=== PATIENT | male | born 1960 | race Caucasian/White ===

== ENCOUNTER 2018-04-12 12:40 | Outpatient (CLI) | payer OTHER ==
--- NOTE | 2018-04-12 13:26 | RAD ---
CHEST PA AND LATERAL: HISTORY: A 57-year-old male with a history of dyspnea. COMPARISON: 12/04/2008 FINDINGS: Heart size is within normal limits. Lungs are clear. No pneumonia, edema, pleural effusion, or othe r acute process. IMPRESSION: No acute intrathoracic disease. Stable from prior study. POS: [facility]
== END 2018-04-12 12:41 | disposition home or self-care (01) ==
LOC: RAD 12:40
PROVIDERS: ATTEND Internal Medicine
DX: R06.00 Dyspnea, unspecified (principal)
CPT/HCPCS: 71046

== ENCOUNTER 2018-05-24 10:45 | Outpatient (CLI) | payer OTHER ==
--- NOTE | 2018-05-24 14:02 | MRI ---
LEFT SHOULDER MRI WITHOUT IV CONTRAST: HISTORY: A 57-year-old male with a history of left shoulder pain, laterally, with biceps tendinitis, left. TECHNIQUE: Multiplanar, multisequence MR examination of the left shoulder is performed. FINDINGS: AC joint arthrosis changes are noted. There is a small amount of fluid within the subacromial bursa. Tendinopathy changes are noted of the supraspinatus tendon, but no evidence for a complete full-thi ckness or retracted tear. The infraspinatus tendon and teres minor tendons are unremarkable. The bi ceps tendon appears unremarkable. No evidence of associated tear. The subscapularis tendon is intac t. The visualized labrum is unremarkable. There is some minimal motion artifact on several sequence s, lowering the sensitivity of this study. No acute osteochondral defect. Rotator cuff muscles are within normal limits in size and signal. IMPRESSION: 1. Acromioclavicular joint arthrosis changes. 2. Supraspinatus tendinopathy. 3. No evidence for other significant acute internal derangement. POS: [facility]
== END 2018-05-24 10:46 | disposition home or self-care (01) ==
LOC: TBSIIMAG 10:45
PROVIDERS: ATTEND Family Medicine
DX: M75.22 Bicipital tendinitis, left shoulder (principal); M19.012 Primary osteoarthritis, left shoulder; M75.82 Other shoulder lesions, left shoulder

== ENCOUNTER 2020-10-19 08:40 | Inpatient (IN) | payer MEDICARE, MEDICAID ==
[2020-10-19] MEDS ORDERED: Lidocaine 1% PF 5 ML VIAL ONE (09:24)
[2020-10-19] MEDS ORDERED: Dexamethasone 20 MG/5 ML VIAL ONE (09:24)
[2020-10-19] MEDS ORDERED: Ondansetron PF 4 MG/2 ML Vial ONE (09:24)
[2020-10-19] MEDS ORDERED: PROPOFOL 200 MG/20 ML VIAL ONE (09:24)
[2020-10-19] MEDS ORDERED: Glycopyrrolate 0.2 MG/ML 5 ML SYRINGE ONE (09:24)
[2020-10-19] MEDS ORDERED: Rocuronium Bromide 10 MG/ML (10ML VIAL) ONE (09:24)
[2020-10-19] MEDS ORDERED: PHENYLEPHRINE-NS 100 MCG/ML 10 ML SYRINGE ONE (09:24)
[2020-10-19] MEDS ORDERED: Iothalamate Meglumine 60% 50 ML VIAL FS ONE (10:00)
[2020-10-19] MEDS ORDERED: Indomethacin 50 MG SUPP ONE (10:00)
[2020-10-19] MEDS ORDERED: Fentanyl 100 MCG/2 ML VIAL ONE (10:05)
[2020-10-19] MEDS ORDERED: Piperacillin/Tazobactam 3.375 GM VIAL ONE ×2 (10:37→18:09)
[2020-10-19] MEDS ORDERED: Sodium Chloride 0.9% 100 ML ONE (10:38)
--- NOTE | 2020-10-19 12:12 | OP ---
DATE OF PROCEDURE: 10/19/2020 PROCEDURE PERFORMED: Endoscopic retrograde cholangiopancreatography with sphincterotomy and balloon stone extraction. PREOPERATIVE DIAGNOSES: Choledocholithiasis and cholangitis. DESCRIPTION OF PROCEDURE: Informed consent was obtained from the patient. He was sedated with general anesthesia and placed in the prone position. The duodenoscope was advanced easily to the second portion of the duodenum. The ampulla was identified and appeared unremarkable. The common bile duct was selectively cannulated easily on 1st attempt. Cholangiogram showed a 14 mm common bile duct with multiple filling defects up to 1.1 cm. The intrahepatic ducts were normal. A complete sphincterotomy was performed. There was pus and multiple yellow pigment stones (around 6) extracted from the duct with a 15 mm balloon. The 15 mm balloon passes through the sphincterotomy without significant resistance. The fluid was suctioned from the stomach and procedure was completed. IMPRESSION: 1. Cholangiogram shows a 14 mm common bile duct with multiple filling defects up to 1.1 cm. 2. Complete sphincterotomy performed. 3. Pus and multiple yellow pigment stones extracted from the bile duct consistent with ascending cholangitis. 4. Occlusion cholangiogram was clear. RECOMMENDATIONS: 1. General Surgery consult for lap cholecystectomy. 2. Continue Zosyn for now. Job ID: [id number] [facility]
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
[2020-10-19 13:11] VITALS: BMI 28.4
--- NOTE | 2020-10-19 13:32 | RAD ---
ERCP: DATE: 10/19/2020 Nine fluoroscopic images are presented from OR during ERCP procedure. INDICATION: Intraoperative imaging during ERCP procedure. FINDINGS/IMPRESSION: These images show opacification of the common duct. There are numerous filling defects seen within th e common duct on the initial images. Final image shows no significant filling defect apparent. POS: [facility]
[2020-10-19] MEDS ORDERED: Ondansetron PF 4 MG/2 ML Vial IVP PRN (14:15)
--- NOTE | 2020-10-19 14:22 | PDOC.FPRHP ---
- History of Present Illness Chief Complaint: Abdominal pain History of Present Illness: Patient is a 59 year old male with a history of HTN, COPD, and GERD who presented to the [place] ED with complains of diffuse abdominal pain, lower back pain and severe nausea since yesterday am. Patient reports symptoms were sudden onset. Pain rated max 10/10, not worsened with movement or food, without radiation. No hx of similar pain in the past. Initially thought pain was due to chronic low back pain. Took BC powder and muscle relaxant without relief. Reports chronic frontal headache but denies fever, chills, chest pain, SOB, vomiting, and diarrhea. States pain resolved after receiving fentanyl 50mcg x 2 in the ED. ED Course: In the ED, patient was tachycardic. Afebrile. Received fentanyl 50mcg x 2, Zofran and 2L IV fluids. Abdominal US showed cholelithiasis and sludge with dilated CBD at 1.4cm. Started on zosyn IV. Dr. Gallardo, GI was consulted and recommended transfer to [facility] for ERCP. - Allergies/Adverse Reactions Allergies Allergy/AdvReac Type Severity Reaction Status Date / Time codeine Allergy Hives Verified 10/19/20 13:04 - Home Medications Medication Instructions Recorded Confirmed Type Acetaminophen [Tylenol Regular 650 mg PO Q4H PRN tab 10/19/20 Rx Strength] Budesonide [Pulmicort Neb Solution] 0.5 mg NEB BID-RT ampule 10/19/20 Rx Guaifenesin DM 100-10 [Robitussin 15 ml PO Q4H PRN ml 10/19/20 Rx DM] Ipratropium/Albuterol Sulfate 3 ml NEB Q4H PRN neb 10/19/20 Rx [DuoNeb] Ketorolac Tromethamine [Toradol] 15 mg IVP Q6H PRN vial 10/19/20 Rx Morphine 4 mg SLOW IVP Q4H PRN vial 10/19/20 Rx Nicotine [Nicoderm CQ] 21 mg TD 0800 patch 10/19/20 Rx Ondansetron HCl/PF [Zofran] 4 mg IVP Q6H PRN vial 10/19/20 Rx Piperacillin/Tazobactam [Zosyn] 3.375 gm IVPB Q8H vial 10/19/20 Rx Sodium Chloride 0.9% [Normal 100 ml IVPB INF bag 10/19/20 Rx Saline 0.9%] - History PMHx: HTN, COPD, GERD, Anxiety, Depression, chronic back pain, OA, tobacco use, nephrolithiasis PSHx: Back surgery FHx: Noncontributory Social: Smokes 1ppd. Denies ETOH use. + marijuana use. - Review of Systems General: denies: fever/chills, weight/appetite/sleep changes Eyes: denies: eye pain, vision changes ENT: denies: nasal congestion, rhinorrhea Respiratory: denies: cough, shortness of breath Cardiovascular: denies: chest pain, palpitation, edema Gastrointestinal: reports: nausea (now resolved), abdominal pain (now resolved). denies: vomiting, diarrhea, constipation Genitourinary: denies: dysuria, polyuria Skin: denies: rashes, jaundice Musculoskeletal: denies: pain, tenderness Neurological: denies: syncope, weakness Psychological: denies: anxiety, depression - Vital signs BP: [115/76] HR: [66] RR: [20] Tmax: [96.8F] Pox: [93]% on [RA] Wt: [108.8kg] - Physical Exam Constitutional: NAD, awake, alert and oriented HEENT: normocephalic and atraumatic, MMM -HEENT: Scleral icterus Neck: FROM, trachea midline Chest: no-tender to palpation Heart: RRR, normal S1/S2, pulses present Lungs: CTAB, no respiratory distress, good air movement Abdomen: soft, non-tender, bowel sounds present, no masses/distention Musculoskeletal: ROM grossly normal Neurological: no focal deficit -Skin: Jaundice present Heme/Lymphatic: no unusual bruising or bleeding Psychiatric: normal mood and affect FMR H&P: A/P - Plan Choledocholithiasis Cholelithiasis Ascending cholangitis WBC 12.3->14.6. Bili 2.7->3.6. AST 422->268. ALT 454->391. UA, trop, hep panel, COVID neg. CT Chest/Abdomen and Abdominal US: cholelithiasis. CBD 1.4 cm. -Patient evaluated by Dr. Gallardo, GI, at ED -ERCP completed on 10/19 and showed choledocholithiasis, ascending cholangitis -Dr. Osborne, gen surg, consulted. Plan for lap marcy in am -Continue Zosyn -Continue LR at 125 -Tylenol PRN for pain Migraine -Reports taking sumatriptan PRN, dose unknown HTN -Not on medication at home -Monitor BP COPD -Not on medication at home Tobacco use -Nicotine patch -Counselled on smoking cessation Marijuana use -UDS + TCH -Counselled on cessation Nephrolithiasis GERD Anxiety Depression Chronic back pain Osteoarthritis -Aware Code: FULL DVT PPx: SCDs Dispo: admit to medicine inpatient, undergo lap marcy in am FMR H&P: Upper Level - Plan Date/Time: 10/19/20 1422 I, Leslie Garner, PGY2, have evaluated this patient and agree with findings/plan as outlined by email marketing intern resident. Pertinent changes/additions are listed here. 59 yo M w/ PMHx of COPD, arthritis, and back pain presented to -ED due to diffuse abdominal pain which would not resolve. He gives minimal responses to questions but says he has had abdominal pain for about a month with acute worsening today. Pain radiates to his back. He thought it was his usual back pain and took muscle relaxers but this did not work. He was accepted as a transfer to our facility for ERCP after ultrasound was suspicious for choledocholithiasis. ERCP was performed by Dr. Gallardo of GI. He performed sphincterotomy, removed stones, and extracted pus from dilated common bile duct. Diagnoses at the time of the operation are ascending cholangitis and choledocholithiasis. Dr. Gallardo has consulted gen surg for lap marcy tomorrow. Patient is aware of this. On my visit with the patient, he was feeling nauseous after trying some broth on his clear liquid diet. VSS No acute distress, scleral icterus bilaterally, mucous membranes moist without jaundice color, lungs CTAB, heart RRR/no murmurs. No edema in his extremities. Mildly tender in abdomen on RUQ. A/P: Ascending cholangitis: continue zosyn, this coverage should be adequate. Gen surg to remove gallbladder tomorrow. NPO at midnight. Zofran for nausea Choledocholithiasis: trend LFTs, GI consulted, stones removed by Dr. Gallardo. Hypomagnesemia: 1.5 at outside hospital, recheck in AM Chronic conditions: Migraines: treat w/ medications, if has a home med, he may take it OA: tylenol prn Tobacco use: encourage cessation THC use: on UDS at [facility], encourage cessation Code: FULL VTE ppx: SCDs Fluids: NS at 125 mL/hr Dispo: inpatient, medical. PCP: Nuria Blandonum - Attending - Attending Attestation Date/Time: 10/19/201948 I personally evaluated the patient and discussed the management with Dr. Lopez/Pascual. H&P repeated by me. I agree with the History, Examination, Assessment and Plan documented above with any addition or exceptions noted below. Ascending cholangitis- s/p ERCP with spincterotomy and stone/pus extraction- on Zosyn. gen surg consult for possible lap marcy Migraine zaragoza- try sumitriptan and if no improvement consider reglan and headache protocol HTN- monitor
[2020-10-19] MEDS ORDERED: Ondansetron ODT 4 MG TAB PO PRN (14:25)
[2020-10-19] MEDS: Nicotine 14 MG PATCH TD SCH (15:22)
[2020-10-19] MEDS ORDERED: SUMAtriptan Succinate 25 MG TAB PO SCH (16:00)
[2020-10-19] MEDS ORDERED: cefOXitin Sodium/Dextrose,Iso 2 GM in Premix Bag 1 BAG IVPB SCH (16:30)
[2020-10-19] MEDS: Lactated Ringer's 1,000 ML IV SCH ×2 (16:34→20:49)
[2020-10-19] MEDS: Acetaminophen 325 MG TAB PO PRN ×2 (18:12→23:52)
[2020-10-19] MEDS: Piperacillin/Tazobactam 3.375 GM in Sodium Chloride 0.9% 100 ML IVPB SCH ×2 (18:12→23:56)
[2020-10-19] MEDS ORDERED: SUMAtriptan Succinate 50 MG TAB PO SCH (18:30)
--- NOTE | 2020-10-19 20:24 | CON ---
DATE OF CONSULTATION: 10/19/2020 CHIEF COMPLAINT: Choledocholithiasis. HISTORY OF PRESENT ILLNESS: The patient is a 59-year-old male, who came in with severe right upper quadrant pain and hyperbilirubinemia. He had enlarged common duct. He underwent ERCP and stone extraction today. I was asked to see him for laparoscopic cholecystectomy. PAST MEDICAL HISTORY: Significant for; 1. COPD. 2. Asthma. PAST SURGICAL HISTORY: 1. He has had arm surgery. 2. He has had cystoscopies. ALLERGIES: HE HAS AN ALLERGY TO CODEINE. MEDICATIONS: 1. Sumatriptan. 2. ProAir. SOCIAL HISTORY: Smokes a pack a day. No alcohol. PHYSICAL EXAMINATION: VITAL SIGNS: Temperature 96.8, pulse 66, blood pressure 115/76. GENERAL: Well-developed, well-nourished male, in no apparent distress. HEENT: Unremarkable. He does have jaundice. LUNGS: Clear. HEART: Regular rate and rhythm. ABDOMEN: Soft. Mild tenderness in right upper quadrant. EXTREMITIES: Unremarkable. LABORATORY DATA: His white blood cell count 14.6, H and H of 14 and 41, platelet count 155. His electrolytes show a bilirubin of 3.6, AST is 268, ALT is 391. ASSESSMENT: Choledocholithiasis. PLAN: Laparoscopic cholecystectomy. CONSENT: I have discussed planned procedure as well as risk of bleeding, infection, injury to bile duct, injury to bowel, need to open. He understands and gives informed consent. Job ID: [id number]
[2020-10-20] MEDS ORDERED: SUMAtriptan Succinate 50 MG TAB PO SCH (00:30)
[2020-10-20] MEDS: Piperacillin/Tazobactam 3.375 GM in Sodium Chloride 0.9% 100 ML IVPB SCH ×3 (05:01→17:27)
[2020-10-20] MEDS: Lactated Ringer's 1,000 ML IV SCH ×3 (05:02→20:52)
[2020-10-20 05:31] LABS: #Monocytes 0.6 thou/uL (0.11-0.59); #Neutrophils 7.8 thou/uL (1.40-6.50); %Basophils 0.3 % (0.0-1.0); %Eosinophils 0.4 % (0.0-10.0); %Lymphocytes 10.7 % (21.0-51.0); %Monocytes 6.3 % (0.0-10.0); %Neutrophils 82.4 % (42.0-75.0); Hemoglobin 13.6 g/dL (14.0-18.0); Mean Corpuscular HGB CONC 33.4 g/dL (32.0-36.0); Mean Corpuscular Hemoglobin 31.5 pg (27.0-31.0); Mean Corpuscular Volume 94.5 fL (78.0-98.0); Mean Platelet Volume 8.7 fL (7.4-10.4); Platelet Count 136 thou/uL (130-400); RBC Distribution Width 12.1 % (11.5-14.5); Red Blood Cell (RBC) Count 4.32 mill/uL (4.70-6.10); White Blood Cell (WBC) Count 9.5 thou/uL (4.8-10.8)
[2020-10-20 05:53] LABS: ALT (SGPT) 252 U/L (8-55); AST (SGOT) 112 U/L (5-34); Albumin 3.4 g/dL (3.5-5.0); Alkaline Phosphatase 65 U/L (40-110); Anion Gap 12 mmol/L (10-20); BUN (Urea Nitrogen) 11 mg/dL (8.4-25.7); Calc. Creatinine Clearance 115 mL/min (70-130); Calcium 8.6 mg/dL (7.8-10.44); Carbon Dioxide 23 mmol/L (22-29); Cardiac Risk 3.3 (Less than 4.5); Chloride 107 mmol/L (98-107); Cholesterol 120 mg/dl (< 200 Desired); Globulin 2.5 g/dL (2.4-3.5); Glucose 102 mg/dL (70-105); HDL Cholesterol 36 mg/dL (>60 Neg Risk); LDL Cholesterol, Calculated 70 mg/dL; Magnesium 1.9 mg/dL (1.6-2.6); Potassium 4.2 mmol/L (3.5-5.1); Protein, Total 5.9 g/dL (6.0-8.3); Sodium 138 mmol/L (136-145); Triglycerides 68 mg/dL (Less than 150)
--- NOTE | 2020-10-20 07:05 | PDOC.FM ---
- Subjective Subjective: Patient is resting comfortably in bed. Reports that he has no abdominal pain, denies N/V. Patient denies chest pain, shortness of breath. - Objective MAR Reviewed: Yes Vital Signs & Weight: Vital Signs (12 hours) Temp Pulse Resp BP Pulse Ox 10/20/20 03:50 98.4 F 83 14 120/83 94 L 10/20/20 00:15 98.3 F 70 14 124/83 95 10/19/20 20:50 96 10/19/20 20:40 97.4 F L 83 16 118/77 96 Weight Weight 108.862 kg I&O: 10/19/20 10/20/20 10/21/20 06:59 06:59 06:59 Intake Total 1950 Output Total 1850 Balance 100 Result Diagrams: 10/20/20 05:05 10/20/20 05:05 Phys Exam - Physical Examination Constitutional: NAD HEENT: PERRLA, moist MMs Respiratory: no wheezing, clear to auscultation bilateral Cardiovascular: RRR, no significant murmur Gastrointestinal: soft, positive bowel sounds mild TTP RUQ Musculoskeletal: no edema Neurological: non-focal, moves all 4 limbs Psychiatric: normal affect, A&O x 3 Dx/Plan - Plan Plan: Choledocholithiasis, Ascending cholangitis WBC 12.3->9.5. Bili 2.7->2. AST/ALT 422/454->112/252, UA, trop, hep panel, COVID neg. CT Chest/Abdomen and Abdominal US: cholelithiasis. CBD 1.4 cm. -Patient evaluated by Dr. Gallardo, GI, at ED -ERCP completed on 10/19 and showed choledocholithiasis, ascending cholangitis, removed pus & stones -Dr. Osborne, gen surg, consulted. Plan for lap marcy this morning -Continue Zosyn -Continue LR at 125 -Tylenol PRN for pain Migraine -Reports taking sumatriptan PRN, dose unknown HTN -Not on medication at home -Monitor BP COPD -Not on medication at home Tobacco use -Nicotine patch -Counselled on smoking cessation Marijuana use -UDS + TCH -Counselled on cessation Hx Nephrolithiasis - aware GERD - on pantoprazole Anxiety /Depression - aware, no home meds Chronic back pain Osteoarthritis -Aware Code: FULL DVT PPx: SCDs Dispo: plan for lap marcy this morning Addendum - Attending - Attending Attestation Date/Time: 10/20/20 5075 I personally evaluated the patient and discussed the management with Dr. Paul. I agree with the History, Examination, Assessment and Plan documented above with any addition or exceptions noted below. Here for choledocholithiasis and suspected ascending cholangitis s/p ERCP. Doing well. Going for lap marcy today with general surgery.
[2020-10-20] MEDS ORDERED: Bupivacaine 0.25% HCL 30 ML VIAL ONE (08:54)
[2020-10-20] MEDS ORDERED: Lidocaine 1% w/Epinephrine 1:100K 20 ML VIAL ONE (08:54)
[2020-10-20] MEDS ORDERED: FLU VACC QS2020-21(6MOS UP)/PF 60 MCG/0.5 ML SYRINGE IM ONE (09:00)
[2020-10-20] MEDS ORDERED: Midazolam HCl 2 mg/2 ml Vial ONE (09:03)
[2020-10-20] MEDS ORDERED: Fentanyl 100 MCG/2 ML VIAL ONE ×2 (09:03→09:58)
[2020-10-20] MEDS ORDERED: cefOXitin Sodium/Dextrose 2 GM/50 ML BAG ONE (09:13)
[2020-10-20] MEDS ORDERED: Promethazine HCl 25 MG/ML VIAL IM PRN ×2 (09:21→10:27)
[2020-10-20] MEDS ORDERED: HYDROmorphone 2 MG/ML VIAL SLOW IVP PRN (09:21)
[2020-10-20] MEDS ORDERED: Ondansetron HCl/PF 4 MG/2 ML Vial IVP PRN (09:21)
[2020-10-20] MEDS ORDERED: Promethazine HCl 25 MG/ML VIAL SLOW IVP PRN (09:21)
[2020-10-20] MEDS ORDERED: Ketorolac Tromethamine 30 MG/ML VIAL IVP PRN (09:21)
[2020-10-20] MEDS ORDERED: Dextrose 50% Abboject 50 ML SYRINGE SLOW IVP PRN (10:27)
[2020-10-20] MEDS ORDERED: HYDROcodone/Acetaminophen 10/325 mg Tablet PO PRN (10:27)
[2020-10-20] MEDS ORDERED: Dextrose 5% in Water 1,000 ML IV PRN (10:27)
[2020-10-20] MEDS ORDERED: Mag-Al 1200 mg/1200 mg/30 ML UDCUP PO PRN (10:27)
[2020-10-20] MEDS ORDERED: Morphine 4 MG/ML VIAL SLOW IVP PRN (10:27)
[2020-10-20] MEDS ORDERED: Calcium Carbonate 500 MG ChewTAB PO PRN (10:27)
[2020-10-20] MEDS ORDERED: hydrALAZINE 20 MG/ML VIAL SLOW IVP PRN (10:27)
[2020-10-20] MEDS ORDERED: Ondansetron PF 4 MG/2 ML Vial IVP PRN (10:27)
[2020-10-20] MEDS ORDERED: Morphine 2 MG/ML VIAL SLOW IVP PRN (10:27)
[2020-10-20] MEDS ORDERED: PHENYLEPHRINE-NS 100 MCG/ML 10 ML SYRINGE ONE (10:46)
[2020-10-20] MEDS ORDERED: Dexamethasone 20 MG/5 ML VIAL ONE (10:46)
[2020-10-20] MEDS ORDERED: Ketorolac Tromethamine 30 MG/ML VIAL ONE (10:46)
[2020-10-20] MEDS ORDERED: Lidocaine 1% PF 5 ML VIAL ONE (10:46)
[2020-10-20] MEDS ORDERED: Rocuronium Bromide 10 MG/ML (10ML VIAL) ONE (10:46)
[2020-10-20] MEDS ORDERED: Glycopyrrolate 0.2 MG/ML 5 ML SYRINGE ONE (10:46)
[2020-10-20] MEDS ORDERED: Ondansetron PF 4 MG/2 ML Vial ONE (10:46)
[2020-10-20] MEDS ORDERED: PROPOFOL 200 MG/20 ML VIAL ONE (10:46)
[2020-10-20] MEDS ORDERED: HYDROcodone/Acetaminophen 5/325 mg Tablet ONE (11:22)
[2020-10-20] MEDS: Ketorolac Tromethamine 30 MG/ML VIAL IVP SCH ×2 (12:08→17:28)
--- NOTE | 2020-10-20 12:10 | OP ---
DATE OF PROCEDURE: 10/20/2020 PREOPERATIVE DIAGNOSIS: Acute cholecystitis. PROCEDURE PERFORMED: Laparoscopic cholecystectomy. INDICATIONS: This is a 59-year-old male, who was admitted through the emergency room with cholangitis, underwent ERCP yesterday with stone extraction, here for laparoscopic cholecystectomy. FINDINGS: A very edematous wall consistent with acute cholecystitis and multiple stones. DESCRIPTION OF PROCEDURE: After informed consent was obtained, the patient was taken to the operating room and given general endotracheal anesthesia, placed in the supine position. Abdomen was prepped and draped in usual fashion. Local anesthesia was infiltrated subcutaneously and deep, and a subumbilical incision was performed. Subcu divided sharply. The fascia was grasped and 2 stay sutures of 0 Vicryl placed through each side of midline. Midline incised. Digital palpation revealed no local adhesions. A blunt 12 mm trocar inserted. Pneumoperitoneum was created to a pressure of 15 mmHg. A 0-degree laparoscope inserted under direct vision. Three 5 mm ports were placed subcostally. The gallbladder grasped and advanced superiorly. Peritoneum lysed distally to expose the cystic duct and artery in view. The cystic duct and artery were triply ligated with hemoclips and divided. The gallbladder removed from its fossa utilizing electrocautery, it was placed in an endosac and removed from the abdomen in the endosac. Hemostasis was assured. The gallbladder fossa irrigated. Hemostasis was assured. Trocars and retractors removed. The fascia closed with interrupted 2-0 Vicryl sutures. Skin closed with interrupted 4-0 Rapide. Dermabond applied. The patient tolerated the procedure well transferred to Recovery in good condition. Sponge and needle count verified correct x2. Job ID: [id number]
--- NOTE | 2020-10-20 13:55 | PRG ---
DATE OF SERVICE: 10/20/2020 SUBJECTIVE: Mr. Pedro had his gallbladder out today. His pain resolved immediately following ERCP. He has no nausea or other complaints currently. OBJECTIVE: VITAL SIGNS: Temperature 98.4, pulse 83, blood pressure 120/83. GENERAL: He is in no acute distress. Alert and oriented x3. LUNGS: Clear to auscultation bilaterally. HEART: Regular rate and rhythm without murmur. ABDOMEN: Soft, nontender, and nondistended. Bowel sounds are present. EXTREMITIES: No lower extremity edema. LABORATORY DATA: Bilirubin 2.0, AST 112, ALT 252, alkaline phosphatase 65. IMPRESSION: Choledocholithiasis with ascending cholangitis, status post endoscopic retrograde cholangiopancreatography with sphincterotomy and balloon stone extraction. He has been on antibiotics. His liver tests are coming down nicely and his symptoms have resolved. He is status post cholecystectomy this morning. RECOMMENDATIONS: He was encouraged to call to schedule followup in the office in 4 to 6 weeks to schedule a screening colonoscopy. I will sign off. Please call if GI can be of assistance. Job ID: [id number]
[2020-10-20] MEDS: Famotidine 20 MG TAB PO SCH ×2 (13:56→20:51)
[2020-10-20] MEDS: Nicotine 14 MG PATCH TD SCH (17:31)
[2020-10-20] MEDS: HYDROcodone/Acetaminophen 10/325 mg Tablet PO PRN (19:28)
[2020-10-20] MEDS ORDERED: SUMAtriptan Succinate 25 MG TAB PO SCH (20:30)
[2020-10-20] MEDS: Famotidine/PF 20 mg/2ml Vial SLOW IVP SCH (20:51)
[2020-10-21] MEDS: Ketorolac Tromethamine 30 MG/ML VIAL IVP SCH ×3 (00:14→11:42)
[2020-10-21] MEDS: Piperacillin/Tazobactam 3.375 GM in Sodium Chloride 0.9% 100 ML IVPB SCH ×3 (00:15→11:41)
[2020-10-21] MEDS: HYDROcodone/Acetaminophen 10/325 mg Tablet PO PRN (01:37)
[2020-10-21] MEDS: Lactated Ringer's 1,000 ML IV SCH ×2 (05:06→11:46)
[2020-10-21] MEDS ORDERED: SUMAtriptan Succinate 50 MG TAB PO SCH (05:30)
[2020-10-21 05:50] LABS: #Lymphocytes 1.5 thou/uL (1.20-3.40); #Monocytes 0.8 thou/uL (0.11-0.59); #Neutrophils 6.9 thou/uL (1.40-6.50); %Eosinophils 0.3 % (0.0-10.0); %Lymphocytes 16.1 % (21.0-51.0); %Monocytes 8.5 % (0.0-10.0); %Neutrophils 75.1 % (42.0-75.0); Hemoglobin 13.5 g/dL (14.0-18.0); Mean Corpuscular HGB CONC 32.8 g/dL (32.0-36.0); Mean Corpuscular Hemoglobin 31.7 pg (27.0-31.0); Mean Corpuscular Volume 96.5 fL (78.0-98.0); Mean Platelet Volume 8.5 fL (7.4-10.4); Platelet Count 151 thou/uL (130-400); RBC Distribution Width 12.4 % (11.5-14.5); Red Blood Cell (RBC) Count 4.27 mill/uL (4.70-6.10); White Blood Cell (WBC) Count 9.2 thou/uL (4.8-10.8)
[2020-10-21 06:10] LABS: ALT (SGPT) 186 U/L (8-55); AST (SGOT) 66 U/L (5-34); Albumin 3.6 g/dL (3.5-5.0); Alkaline Phosphatase 54 U/L (40-110); Anion Gap 13 mmol/L (10-20); BUN (Urea Nitrogen) 14 mg/dL (8.4-25.7); Bilirubin, Total 1.1 mg/dL (0.2-1.2); Calc. Creatinine Clearance 114 mL/min (70-130); Calcium 8.5 mg/dL (7.8-10.44); Carbon Dioxide 22 mmol/L (22-29); Chloride 108 mmol/L (98-107); Globulin 2.5 g/dL (2.4-3.5); Glucose 94 mg/dL (70-105); Lipase 10 U/L (8-78); Potassium 4.2 mmol/L (3.5-5.1); Protein, Total 6.1 g/dL (6.0-8.3); Sodium 139 mmol/L (136-145)
--- NOTE | 2020-10-21 07:11 | PDOC.FM ---
- Subjective Subjective: Patient is resting comfortably in bed. No acute concerns, no events overnight. States that he has very mild abdominal pain, is ready to eat and is ready to leave today. Denies chest pain, shortness of breath, f/chills, N/V. - Objective MAR Reviewed: Yes Vital Signs & Weight: Vital Signs (12 hours) Temp Pulse Resp BP Pulse Ox 10/21/20 05:03 97.5 F L 62 16 121/74 94 L 10/20/20 23:11 98.0 F 61 18 98/65 94 L 10/20/20 20:50 95 10/20/20 20:29 98.5 F 63 16 111/72 95 Weight Weight 108.862 kg I&O: 10/20/20 10/21/20 10/22/20 06:59 06:59 06:59 Intake Total 1950 2350 Output Total 1850 Balance 100 2350 Result Diagrams: 10/21/20 05:38 10/21/20 05:38 Phys Exam - Physical Examination Constitutional: NAD HEENT: PERRLA, moist MMs Respiratory: no wheezing, clear to auscultation bilateral Cardiovascular: RRR, no significant murmur Gastrointestinal: soft, non-tender well-healing laparascopy scars Musculoskeletal: no edema Neurological: non-focal, moves all 4 limbs Psychiatric: normal affect, A&O x 3 Skin: no rash Dx/Plan - Plan Plan: Choledocholithiasis, Cholelithiasis, Ascending cholangitis WBC 12.3->9.2. Bili 2.7->1.1. AST/ALT 422/454->66/186, UA, trop, hep panel, COVID neg. CT Chest/Abdomen and Abdominal US: cholelithiasis. CBD 1.4 cm. -Patient evaluated by Dr. Gallardo, GI, at ED -s/p ERCP with sphincterotomy and balloon stone extraction - recs f/u in office in 4-6 weeks for screening colonoscopy - will d/c zosyn -Dr. Osborne, gen surg, consulted - Lap Cholecystectomy 10/20 - toradol yael, norco/morphine prn pain; last took morphine yesterday for his abdominal pain - full liquid diet, will advance and d/c today Migraine -Reports taking sumatriptan PRN, dose unknown HTN -Not on medication at home -Monitor BP COPD -Not on medication at home Tobacco use -Nicotine patch -Counselled on smoking cessation Marijuana use -UDS + TCH -Counselled on cessation Hx Nephrolithiasis - aware GERD - on pantoprazole Anxiety /Depression - aware, no home meds Chronic back pain Osteoarthritis -Aware Code: FULL DVT PPx: SCDs Dispo: plan for d/c today with follow up with Dr. Osborne and Dr. Gallardo Addendum - Attending - Attending Attestation Date/Time: 10/21/20 1126 I personally evaluated the patient and discussed the management with Dr. Paul. I agree with the History, Examination, Assessment and Plan documented above with any addition or exceptions noted below. Patient feeling well and tolerating diet POD1 from lap cholecystectomy. Awaiting final GenSurgery recs but hopeful to dc home today.
[2020-10-21] MEDS ORDERED: Enoxaparin Sodium 40 MG/0.4 ML SYRINGE SC SCH (09:00)
[2020-10-21] MEDS: Famotidine 20 MG TAB PO SCH (11:45)
[2020-10-21] MEDS: Famotidine/PF 20 mg/2ml Vial SLOW IVP SCH (11:46)
[2020-10-21 12:26] VITALS: BP 116/75; TEMP 97.2
--- NOTE | 2020-10-22 06:44 | DIS ---
DATE OF ADMISSION: 10/19/2020 DATE OF DISCHARGE: 10/21/2020 DISCHARGE DIAGNOSES: Acute cholecystitis, choledocholithiasis, and cholangitis. PROCEDURES DURING ADMISSION: Endoscopic retrograde cholangiopancreatography, sphincterotomy, stone extraction, laparoscopic cholecystectomy. HOSPITAL COURSE: The patient was admitted, given IV antibiotics. GI took him to ERCP, he was found to have multiple stones in his duct with purulent fluid. General Surgery was consulted. Laparoscopic cholecystectomy was performed the following day. He is doing much better now. He is tolerating liquids. His pain is controlled. He is discharged home on hydrocodone, Zofran, and doxycycline. He will follow up with me in 2 weeks. Job ID: [id number]
== END 2020-10-21 12:43 | disposition home or self-care (01) | DRG 419 ==
LOC: SURG A 09:32 → SURG B 12:49
PROVIDERS: ADMIT Family Medicine; ATTEND Family Medicine
PROC: 0F798ZZ Dilation of Common Bile Duct, Via Natural or Artificial Opening Endoscopic (ICD-10-PCS; principal; 2020-10-19)
PROC: 0FT44ZZ Resection of Gallbladder, Percutaneous Endoscopic Approach (ICD-10-PCS; 2020-10-20)
DX: K80.42 Calculus of bile duct with acute cholecystitis without obstruction (principal); Z20.828 Contact with and (suspected) exposure to other viral communicable diseases; G43.909 Migraine, unspecified, not intractable, without status migrainosus; M19.90 Unspecified osteoarthritis, unspecified site; J44.9 Chronic obstructive pulmonary disease, unspecified; F17.210 Nicotine dependence, cigarettes, uncomplicated; I10 Essential (primary) hypertension; K21.9 Gastro-esophageal reflux disease without esophagitis; F12.90 Cannabis use, unspecified, uncomplicated; Z88.5 Allergy status to narcotic agent; Z79.82 Long term (current) use of aspirin; Z79.899 Other long term (current) drug therapy
CPT/HCPCS: 36415; 74330; 80053; 80061; 83690; 83735; 85025; 88304; J0694; J1100; J1885; J2250; J2270; J2405; J2543; J2704; J3010; J3490; S0020